=== PATIENT | male | born 1975 | race Caucasian/White ===

== ENCOUNTER 2024-11-05 10:23 | Emergency (ER) | payer OTHER ==
[2024-11-05 11:30] LABS: PLATELET COUNT,PLT 220 K/uL (130-375); RED BLOOD CELL COUNT 4.88 M/uL (4.14-5.76); WHITE BLOOD CELL COUNT,WBC 9.0 K/uL (3.2-11.0)
[2024-11-05 11:49] LABS: LYMPHOCYTES ABSOLUTE MAN 2.70 K/uL (0.8-3.3); LYMPHOCYTES PERCENT MAN 30 % (24-44); MONOCYTES ABSOLUTE MAN 0.63 K/uL (0.20-0.90); MONOCYTES PERCENT MAN 7 % (2-6); NEUTROPHILS ABSOLUTE MAN 5.67 K/uL (1.0-7.6); SEG NEUTROPHILS PERCENT MAN 63 % (36-66)
[2024-11-05 11:56] LABS: A/G RATIO 1.1 (1.2-2.2); ALANINE AMINOTRANSFERASE,ALT 37 U/L (12-78); ASPARTATE AMNIOTRANSFERASE,AST 27 U/L (15-37); BILIRUBIN TOTAL 0.6 mg/dL (0.2-1.0); BLOOD UREA NITROGEN,BUN 17 mg/dL (7-18); CARBON DIOXIDE,CO2 25 mmol/L (21-32); CHLORIDE,CL 106 mmol/L (100-108); CREATININE 0.9 mg/dL (0.8-1.3); ESTIMATED GFR 105 mL/min (>60); GLUCOSE RANDOM 101 mg/dL (74-106); POTASSIUM,K 3.9 mmol/L (3.6-5.2); PROTEIN TOTAL,TP 6.7 g/dL (6.4-8.2); SODIUM,NA 138 mmol/L (140-148)
[2024-11-05 12:51] LABS: CREATINE KINASE,CK 200.0 U/L (39-308); TROPONIN I HIGH SENSITIVITY 4.7 pg/mL (<=60.3)
== END 2024-11-05 12:47 | disposition left against medical advice (07) ==
LOC: JP.ED 10:23
DX: T75.4XXA Electrocution, initial encounter (principal)
CPT/HCPCS: 36415; 80053; 82550; 84484; 85025; 93005; 99283

== ENCOUNTER 2024-11-05 13:25 | Emergency (ER) | payer OTHER | END 2024-11-05 16:58 | disposition home or self-care (01) | LOC: JP.ED 13:25 | DX: T75.4XXA Electrocution, initial encounter (principal) | CPT/HCPCS: 99282; 99283 ==